=== PATIENT | male | born 1995 | race American Indian/Alaskan Native ===

== ENCOUNTER 2019-08-28 03:34 | Emergency (ER) | payer OTHER ==
[2019-08-28] MEDS ORDERED: Oxymetazoline 0.05% Nasal Spray 15 ML Bottle NAS ONE (05:26)
--- NOTE | 2019-08-28 05:27 | EDM.PDOC ---
ED HPI GENERAL MEDICAL PROBLEM - General Chief Complaint: ENT Problem Stated Complaint: NOSE BLEED Time Seen by Provider: 08/28/19 05:11 Source of Information: Reports: Patient History Limitations: Reports: No Limitations - History of Present Illness INITIAL COMMENTS - FREE TEXT/NARRATIVE: Patient is a 23-year-old male who is complaining of having right-sided epistaxis that started 1 month ago occurring once a week at first but has increased in frequency. Patient states that tonight he has had 3 episodes and thinks he has had approximately 1 cup of blood loss from this. Blood mainly is coming out anteriorly but occasionally he will notice it posteriorly. He denies any trauma and is not on any blood thinners. Patient states he occasionally does pick his nose. He has no trouble with other cuts or bruising healing. He has no history of blood dyscrasias. Before 1 month ago he has not had similar symptoms. He has not seen anybody for his current symptoms. Duration: Week(s): (four), Getting Worse Location: Reports: Face Severity: Mild Improves with: Reports: None Worsens with: Reports: None Associated Symptoms: Reports: No Other Symptoms - Related Data Allergies Allergy/AdvReac Type Severity Reaction Status Date / Time No Known Allergies Allergy Verified 08/28/19 04:04 Home Meds: Home Meds . [No Known Home Meds] 08/28/19 [History] Past Medical History HEENT History: Reports: None Cardiovascular History: Reports: None Respiratory History: Reports: None Gastrointestinal History: Reports: None Genitourinary History: Reports: None Musculoskeletal History: Reports: None Neurological History: Reports: None Psychiatric History: Reports: Anxiety, Depression Endocrine/Metabolic History: Reports: None Insulin Pump Model and Mail Distribution Scheme Examiner: None Hematologic History: Reports: None Immunologic History: Reports: None Oncologic (Cancer) History: Reports: None Dermatologic History: Reports: None - Infectious Disease History Infectious Disease History: Reports: None - Past Surgical History Head Surgeries/Procedures: Reports: None Social & Family History - Family History Family Medical History: Noncontributory - Tobacco Use Smoking Status *Q: Never Smoker - Caffeine Use Caffeine Use: Reports: Soda - Recreational Drug Use Recreational Drug Use: No ED ROS ENT - Review of Systems Review Of Systems: Comprehensive ROS is negative, except as noted in HPI. ED EXAM, ENT - Physical Exam Exam: See Below Exam Limited By: No Limitations General Appearance: Alert, No Apparent Distress Nose: Nasal Swelling, Dried Blood Mouth/Throat: Normal Inspection, Normal Oropharynx. No: Bleeding Head: Normocephalic Neck: Normal Inspection, Supple Respiratory/Chest: No Respiratory Distress Extremities: Normal Inspection Neurological: Alert, Oriented Psychiatric: Normal Affect Course - Vital Signs Text/Narrative:: Patient refuses Rhino Rocket at this time. He will return if his epistaxis turns. I have given him instructions for Afrin spray on the right side for the next several days and to use a nasal clip if needed. He is also instructed to use a humidifier when he sleeps and to take some Vaseline around both naris before he goes to bed. Patient should follow-up with a ENT provider if his symptoms continue. He again will return to ER for packing of his nose if his symptoms reoccur. Last Recorded V/S: Last Vital Signs Temp 36.4 C 08/28/19 04:00 Pulse 75 08/28/19 04:00 Resp 18 08/28/19 04:00 BP 129/83 08/28/19 04:00 Pulse Ox 98 08/28/19 04:00 Departure - Departure Time of Disposition: 05:32 Disposition: Home, Self-Care 01 Condition: Good Clinical Impression: Epistaxis - Discharge Information Instructions: Nosebleed, Adult Referrals: PCP,None [Primary Care Provider] - Additional Instructions: The following information is given to patients seen in the emergency department who are being discharged to home. This information is to outline your options for follow-up care. We provide all patients seen in our emergency department with a follow-up referral. The need for follow-up, as well as the timing and circumstances, are variable depending upon the specifics of your emergency department visit. If you don't have a primary care physician on staff, we will provide you with a referral. We always advise you to contact your personal physician following an emergency department visit to inform them of the circumstance of the visit and for follow-up with them and/or the need for any referrals to a consulting specialist. The emergency department will also refer you to a specialist when appropriate. This referral assures that you have the opportunity for follow-up care with a specialist. All of these measure are taken in an effort to provide you with optimal care, which includes your follow-up. Under all circumstances we always encourage you to contact your private physician who remains a resource for coordinating your care. When calling for follow-up care, please make the office aware that this follow-up is from your recent emergency room visit. If for any reason you are refused follow-up, please contact the [facility] Emergency Department at and asked to speak to the emergency department charge nurse. Care Plan Goals: Follow-up with ENT provider if symptoms continue. Return to ER if worse. Afrin nasal spray for the next 2 to 3 days nasal clip if needed. Blow your nose. No heavy lifting or straining for the next 24 hours. Humidifier in your bedroom at night with Vaseline around both naris before you go to sleep. Sepsis Event Note - Evaluation Sepsis Screening Result: No Definite Risk - Focused Exam Vital Signs: Vital Signs Temp Pulse Resp BP Pulse Ox 08/28/19 04:00 36.4 C 75 18 129/83 98 Date Exam was Performed: 08/28/19 Time Exam was Performed: 05:12
== END 2019-08-28 05:45 | disposition home or self-care (01) ==
LOC: MW.ED 03:34
DX: R04.0 Epistaxis (principal)
CPT/HCPCS: 99283; A9270; 99282